=== PATIENT | female | born 1990 | race Caucasian/White ===

== ENCOUNTER 2016-12-11 02:28 | Inpatient (IN) ==
[2016-12-11 03:24] LABS: Amorphous Crystals,Urine Occasional /HPF (Few); Apearance,Urine Slightly Hazy (Clear); Bilirubin,Urine Negative (Negative); Blood, Urine Moderate mg/dL (Negative); Glucose,Urine (UA) Negative (Negative); Ketones,Urine Negative (Negative); Mucus,Urine Occasional /LPF (Occasional); Nitrite,Urine Negative (Negative); Protein,Urine Negative; RBC,Urine 24 /HPF (0-4); Squamous Epithelial Cell,Urine Occasional /HPF (0-10); Urine Color Yellow (Yellow); Urine Specific Gravity 1.011 (1.001-1.035); Urine Urobilinogen < 2.0 EU/DL (0.2-1.0)
[2016-12-11] MEDS ORDERED: FAMOTIDINE 20 MG/2 ML VIAL IV ONE (04:33)
[2016-12-11] MEDS ORDERED: CITRIC ACID/SODIUM CITRATE 30 ML UDCUP PO ONE (04:33)
[2016-12-11 04:55] LABS: Basophils % 0.2 % (0.0-0.8); Eosinophils # 0.2 10*3/uL (0.0-0.87); Eosinophils % 1.3 % (0.00-10.9); Hematocrit 32.6 VOL% (35.7-47.0); Hemoglobin 10.4 GM/DL (12.0-16.0); Immature Granulocytes % 0.6 %; Immature Granulocytes Absolute 0.07 #; Lymphocytes # 2.2 10*3/uL (1.4-4.0); Lymphocytes % 18.1 % (21.3-54.2); Mean Corpuscular HGB Conc 31.9 GM/DL (32-36); Mean Corpuscular Hemoglobin 26 PG (27-34); Mean Corpuscular Volume 82.1 FL (87-102); Mean Platelet Volume 11.9 FL (9.6-12.0); Monocytes # 0.9 10*3/uL (0.11-0.8); Monocytes % 7.1 % (1.7-12.7); Neutrophils # 8.9 10*3/uL (1.4-7.4); Neutrophils % 72.7 % (38.7-73.9); Platelet Count 211 T/CUMM (130-400); Red Blood Count 3.97 MC/CUMM (3.8-5.5); Red Cell Distribution Width 14.4 % (9.3-17.3); White Blood Count 12.3 T/CUMM (4-12)
[2016-12-11] MEDS: LACTATED RINGERS 1,000 ML IV SCH ×3 (05:00→19:27)
[2016-12-11] MEDS ORDERED: BUTORPHANOL 1 MG/ML VIAL IV PRN (05:04)
[2016-12-11] MEDS ORDERED: ONDANSETRON 4 MG/2 ML VIAL IV PRN ×2 (05:05→09:35)
[2016-12-11] MEDS ORDERED: BUTORPHANOL 1 MG/ML VIAL ONE (05:07)
[2016-12-11] MEDS ORDERED: ONDANSETRON 4 MG/2 ML VIAL ONE (05:08)
[2016-12-11] MEDS ORDERED: OXYTOCIN/LR 20 UNIT/1,000 ML BAG IV ONE ×4 (05:33→09:35)
[2016-12-11 05:45] LABS: Alanine Aminotransferase 13 U/L (13-56); Albumin 2.6 G/DL (3.4-5.0); Alkaline Phosphatase 251 U/L (45-117); Aspartate Amino Transferase 6 U/L (0-37); Bilirubin,Total < 0.39 MG/DL (0.2-1.0); Blood Urea Nitrogen 9 MG/DL (7-18); Calcium 9.3 MG/DL (8.5-10.1); Glucose 99 MG/DL (74-106); Osmolality,Calculated 275.5 MOS/KG (273-304); Potassium 4.7 MMOL/L (3.5-5.1); Sodium 139 MMOL/L (136-145); Total Protein 6.2 G/DL (6.4-8.3)
[2016-12-11] MEDS ORDERED: CITRIC ACID/SODIUM CITRATE 30 ML UDCUP ONE (07:49)
[2016-12-11] MEDS ORDERED: SODIUM CHLORIDE 0.9% 100 ML IV ONE (07:50)
[2016-12-11] MEDS ORDERED: PHENYLEPHRINE 1 MG/10 ML SYRINGE IV ONE (07:59)
[2016-12-11] MEDS ORDERED: METHYLERGONOVINE 0.2 MG/1 ML AMP ONE (08:23)
[2016-12-11] MEDS ORDERED: METHYLENE BLUE 10 ML VIAL IV ONE (08:53)
[2016-12-11] MEDS ORDERED: TISSUE ADHESIVE 1 EACH APPLICATOR TOP ONE ×2 (09:22→09:32)
[2016-12-11] MEDS ORDERED: RHO(D) IMMUNE GLOBULIN 300 MCG SYRINGE IM ONE (09:35)
[2016-12-11] MEDS ORDERED: ACETAMINOPHEN 325 MG TABLET PO PRN (09:35)
--- NOTE | 2016-12-11 09:35 | History and Physical Update ---
History and Physical Update - Dictation Physical: refer to scanned H&P - Physical Exam Mental Status: alert and oriented Heart: regular rate and rhythm Lung: clear to auscultation Abdomen: within normal limits Vitals: within normal limits History and Physical Changes: Pt with onset of UCs at about 0130 this morning becoming more painful during the observation period. Pt was 2 cm at time of nurses check. Pt is at 39w5d with EDC of 12/13/16. Prev C/S x 4. Desires sterilization.
[2016-12-11] MEDS ORDERED: fentaNYL 100 MCG/2 ML VIAL ONE (09:46)
[2016-12-11] MEDS ORDERED: MORPHINE 10 MG/10 ML VIAL ONE (09:47)
--- NOTE | 2016-12-11 09:51 | Anesthesia Post-Op ---
Anesthesia Post OP - Post Ansesthetic Evaluation Patient seen in post op: Yes Resp: within normal limits CV: within normal limits Mental: within normal limits Temp: within normal limits [id number]: within normal limits Nausea and Vomiting: within normal limits Pain: within normal limits
[2016-12-11 10:03] LABS: Apearance,Urine CLEAR (Clear); Bilirubin,Urine Negative (Negative); Blood, Urine Small mg/dL (Negative); Glucose,Urine (UA) Negative (Negative); Ketones,Urine Negative (Negative); Mucus,Urine Occasional /LPF (Occasional); Nitrite,Urine Negative (Negative); Protein,Urine Negative; RBC,Urine <1 /HPF (0-4); Squamous Epithelial Cell,Urine Occasional /HPF (0-10); Urine Color Straw (Yellow); Urine Specific Gravity 1.006 (1.001-1.035); Urine Urobilinogen < 2.0 EU/DL (0.2-1.0); WBC,Urine <1 /HPF (0-6)
[2016-12-11 19:40] LABS: Basophils % 0.2 % (0.0-0.8); Eosinophils # 0.1 10*3/uL (0.0-0.87); Eosinophils % 0.6 % (0.00-10.9); Hematocrit 28.6 VOL% (35.7-47.0); Hemoglobin 9.2 GM/DL (12.0-16.0); Immature Granulocytes % 0.6 %; Immature Granulocytes Absolute 0.07 #; Lymphocytes # 1.5 10*3/uL (1.4-4.0); Lymphocytes % 12.7 % (21.3-54.2); Mean Corpuscular HGB Conc 32.2 GM/DL (32-36); Mean Corpuscular Hemoglobin 27 PG (27-34); Mean Corpuscular Volume 82.4 FL (87-102); Mean Platelet Volume 11.5 FL (9.6-12.0); Monocytes # 0.7 10*3/uL (0.11-0.8); Monocytes % 5.8 % (1.7-12.7); Neutrophils # 9.4 10*3/uL (1.4-7.4); Neutrophils % 80.1 % (38.7-73.9); Platelet Count 160 T/CUMM (130-400); Red Blood Count 3.47 MC/CUMM (3.8-5.5); Red Cell Distribution Width 14.4 % (9.3-17.3); White Blood Count 11.8 T/CUMM (4-12)
[2016-12-11] MEDS: DOCUSATE SODIUM 100 MG CAPSULE PO SCH (21:30)
[2016-12-11] MEDS ORDERED: diphenhydrAMINE CAP 25 MG CAPSULE PO PRN (22:45)
[2016-12-12] MEDS: LACTATED RINGERS 1,000 ML IV SCH (02:25)
[2016-12-12] MEDS: IBUPROFEN 800 MG TABLET PO PRN ×2 (03:00→20:50)
[2016-12-12] MEDS: oxyCODONE/ACETAMINOPHEN 5-325 MG TABLET PO PRN ×3 (03:00→20:50)
[2016-12-12 07:01] LABS: Basophils % 0.1 % (0.0-0.8); Eosinophils # 0.1 10*3/uL (0.0-0.87); Eosinophils % 0.9 % (0.00-10.9); Hematocrit 26.2 VOL% (35.7-47.0); Hemoglobin 8.5 GM/DL (12.0-16.0); Immature Granulocytes % 0.7 %; Immature Granulocytes Absolute 0.08 #; Lymphocytes # 1.8 10*3/uL (1.4-4.0); Lymphocytes % 15.2 % (21.3-54.2); Mean Corpuscular HGB Conc 32.4 GM/DL (32-36); Mean Corpuscular Hemoglobin 27 PG (27-34); Mean Corpuscular Volume 82.1 FL (87-102); Mean Platelet Volume 11.9 FL (9.6-12.0); Monocytes # 0.6 10*3/uL (0.11-0.8); Monocytes % 5.1 % (1.7-12.7); Neutrophils # 9.2 10*3/uL (1.4-7.4); Platelet Count 154 T/CUMM (130-400); Red Blood Count 3.19 MC/CUMM (3.8-5.5); Red Cell Distribution Width 14.4 % (9.3-17.3); White Blood Count 11.7 T/CUMM (4-12)
[2016-12-12] MEDS: DOCUSATE SODIUM 100 MG CAPSULE PO SCH ×2 (09:28→20:50)
[2016-12-12] MEDS: MULTIVITAMIN (PRENATAL) TABLET PO SCH (09:28)
[2016-12-12] MEDS: MAGNESIUM HYDROXIDE SUSP 30 ML UDCUP PO PRN ×2 (09:29→20:50)
[2016-12-12] MEDS: SIMETHICONE CHEW 80 MG TABLET PO PRN ×2 (10:25→20:50)
--- NOTE | 2016-12-12 11:37 | OB/GYN Progress Note ---
Assessment and Plan (1) delivery delivered Status: Acute Assessment and plan: Routine care Current Visit: Yes APPRAISER IRRIGATION TAX - PN: Subj Interval history: POD# 1 Doing well. Having expected postop discomfort. Exam APPRAISER IRRIGATION TAX - Constitutional Vitals: Vital Signs Temp Pulse Resp BP Pulse Ox 12/12/16 08:00 97.0 F L 82 20 129/61 98 12/12/16 04:20 98.2 F 91 H 20 146/73 96 12/12/16 01:55 20 12/12/16 00:05 97.2 F L 93 H 20 125/63 96 12/11/16 19:27 97.5 F L 89 20 138/66 99 12/11/16 16:00 97.0 F L 73 19 122/57 12/11/16 12:00 97.2 F L 82 20 111/58 General appearance: no acute distress, morbidly obese - Head Head exam: Present: normal inspection, normocephalic - Eye Eye exam: Present: EOMI - Respiratory Respiratory exam: Present: clear to auscultation bilaterally - Cardiovascular Cardiovascular exam: Present: regular rate and rhythm - GI/Abdominal GI/Abdominal exam: Present: soft (fundus firm, nontender. Incision intact without E/I/D) - Extremities Exam Extremities exam: Present: normal inspection - Neurological Exam Neurological exam: Present: alert, oriented X3 - Psychiatric Psychiatric exam: Present: normal affect, normal mood - Skin Skin exam: Present: normal color, warm Results - Labs CBC & BMP: 12/12/16 06:30 12/11/16 04:47 Lab Results: I have reviewed the past 24 hour labs
[2016-12-12] MEDS ORDERED: BISACODYL 10 MG SUPP RECTAL PRN (23:31)
[2016-12-13] MEDS: oxyCODONE/ACETAMINOPHEN 5-325 MG TABLET PO PRN ×2 (01:08→06:20)
[2016-12-13] MEDS: SIMETHICONE CHEW 80 MG TABLET PO PRN (02:37)
[2016-12-13 03:01] LABS: Basophils % 0.1 % (0.0-0.8); Eosinophils # 0.2 10*3/uL (0.0-0.87); Eosinophils % 1.3 % (0.00-10.9); Hematocrit 27.9 VOL% (35.7-47.0); Immature Granulocytes % 0.8 %; Lymphocytes % 16.5 % (21.3-54.2); Mean Corpuscular HGB Conc 32.3 GM/DL (32-36); Mean Corpuscular Hemoglobin 27 PG (27-34); Mean Corpuscular Volume 83.3 FL (87-102); Mean Platelet Volume 11.3 FL (9.6-12.0); Monocytes # 0.9 10*3/uL (0.11-0.8); Monocytes % 7.7 % (1.7-12.7); Neutrophils % 73.6 % (38.7-73.9); Platelet Count 169 T/CUMM (130-400); Red Blood Count 3.35 MC/CUMM (3.8-5.5); Red Cell Distribution Width 14.5 % (9.3-17.3); White Blood Count 12.2 T/CUMM (4-12)
[2016-12-13] MEDS ORDERED: IBUPROFEN 800 MG TABLET PO PRN (04:34)
--- NOTE | 2016-12-13 07:30 | Discharge Summary ---
Hospital Course - Hospital Course Hospital Course: Pt admitted in active labor. She underwent Repeat LTCS with BTL without complication. Her course has been unremarkable except for significant gas pains now relieved since BM p Fleets enema. Diagnosis - Discharge Diagnosis (1) delivery delivered Status: Acute Discharge Plan - Discharge Data Disposition: Disch To Home/Self Care Condition at Discharge: Stable Discharge Diet: regular diet Activity: other (pelvic rest x 6 wks) Hygiene: may shower Weight Bearing at Discharge: full weight bearing Driving: not until seen by doctor Contact your physician if you experience:: fever over 101, Difficulty voiding, Redness or swelling, Nausea/Vomiting, Shortness of breath, Bleeding, pain uncontrolled by pain medications - Discharge Medications New Acetaminophen Tab [Tylenol Tab] 325 mg PO Q6H PRN tablet PRN Reason: Pain Mild (1-3) And/Or Fever diphenhydrAMINE CAP [Benadryl Cap] 25 mg PO Q6H PRN capsule PRN Reason: Itching Docusate Sodium Cap [Colace Cap] 100 mg PO BID capsule Magnesium Hydroxide Susp [Milk of Magnesia] 30 ml PO BID PRN PRN Reason: Constipation oxyCODONE/ACETAMINOPHEN 5-325 [Percocet 5-325] 2 tablet PO Q4H PRN #30 tablet PRN Reason: Pain Moderate (4-7) Simethicone Chew Tab [Mylicon Chew Tab] 80 mg PO Q6H PRN tablet PRN Reason: Gas Ibuprofen Tab [Motrin Tab] 800 mg PO Q6H PRN #30 tablet PRN Reason: Pain Discontinued Multivitamin () [ Vitamin] 1 tablet PO DAILY - Follow Up or Referral Follow Up: Sandra Prakash DO [Physician] - 1 Week (Tuesday 2pm) - Forms/Instructions Exam - Constitutional Vitals: Period Temp Pulse Resp BP Sys/Menon Pulse Ox Last 24 Hr 97.0 F-98.3 F 82-115 18-20 128-140/61-77 96-100 General appearance: no acute distress, morbidly obese - Head Head exam: Present: normal inspection, normocephalic - Eye Eye exam: Present: EOMI - Respiratory Respiratory exam: Present: clear to auscultation bilaterally - Cardiovascular Cardiovascular exam: Present: regular rate and rhythm - GI/Abdominal GI/Abdominal exam: Present: soft (fundus firm, nontender; Incision intact without E/I/D. Superficial separation of right edge of incision.) - Extremities Exam Extremities exam: Present: normal inspection - Neurological Exam Neurological exam: Present: alert, oriented X3 - Psychiatric Psychiatric exam: Present: normal affect, normal mood - Skin Skin exam: Present: normal color, warm Discharge Results Labs on day of discharge: Labs from last 24 hours 12/13/16 02:55 WBC 12.2 H RBC 3.35 L Hgb 9.0 L Hct 27.9 L MCV 83.3 L MCH 27 MCHC 32.3 RDW 14.5 Plt Count 169 MPV 11.3 Neut % (Auto) 73.6 Lymph % (Auto) 16.5 L Steele % (Auto) 7.7 Eos % (Auto) 1.3 Baso % (Auto) 0.1 Neut # (Auto) 9.0 H Lymph # (Auto) 2.0 Steele # (Auto) 0.9 H Eos # (Auto) 0.2 Baso # (Auto) 0.0 Immature Gran % 0.8 Nucleated RBC % 0.0 Immature Gran # 0.10 Nucleated RBCs # 0.00 DS: Provider Date of admission: 12/11/16 04:33 Primary care physician: . No PCP Attending physician on admission: Sandra Prakash DO Consults: 12/11/16 04:33 Consult to Anesthesiology [CONS] Routine Consulting Provider: Reason for Anesthesiology: Pre-op Clearance 12/11/16 05:21 Consult to Dietitian [CONS] Routine Reason for Dietitian: Dietary Consult 12/11/16 09:35 Consult to [employer] Hanger Attacher [CONS] Routine Consult Clip And Hanger Attacher: Breast Feeding Discharging clinician: Sandra Prakash DO Expected date of discharge: 12/13/16
[2016-12-13 08:24] VITALS: BP 113/52
--- NOTE | 2016-12-13 09:16 | Anesthesia Post-Op ---
Anesthesia Post OP - Post Ansesthetic Evaluation Patient seen in post op: Yes Resp: within normal limits CV: within normal limits Mental: within normal limits Temp: within normal limits [id number]: within normal limits Nausea and Vomiting: within normal limits Pain: within normal limits
[2016-12-13] MEDS: DOCUSATE SODIUM 100 MG CAPSULE PO SCH (09:26)
[2016-12-13] MEDS: MULTIVITAMIN (PRENATAL) TABLET PO SCH (09:27)
--- NOTE | 2016-12-14 13:22 | Pathology Report from [facility] ---
[facility] ACCESSION # : [id number] PATIENT NAME : Isaac Ace ORDERING DR : CLINT KELLER CLINICAL HX: IUP @ 39.5 wks, previous C/S, active labor, requests sterilization POST-OP DX: Same SPECIMEN INFO: Placenta GROSS DESCRIPTION: Received fresh labeled with the patients name ISAAC ACE and consists of a 591 gram placenta which measures 16.5 x 19.0 x 2.8 cm. membranes are translucent with meconium staining noted. The umbilical cord measures 38.0 cm, contains three vessels and is eccentrically inserted. The surface is blue-santana and intact. The maternal surface displays mildly disrupted red-santana cotyledons with calcifications seen. Sectioning reveals no gross abnormalities. Sections submitted: A membranes and cord, B and maternal surfaces. DIAGNOSIS FOR ISAAC ACE: Three vessel umbilical cord.Placental membranes with gross meconium staining.Third trimester chorionic villi with focal placental infarction and dystrophic calcification. COLLECTED DATE: 12/13/2016 [facility] REPORT DATE: 12/14/2016 ELECTRONICALLY SIGNED BY: Dread Schwartz M.D. 12/14/2016 - 9:58:45 [id number]
== END 2016-12-13 12:00 | disposition home or self-care (01) | DRG 540 ==
LOC: N.LDOUT 02:28 → N.LD 02:31 → N.OB 17:15
PROVIDERS: ADMIT Obstetrics & Gynecology; ATTEND Obstetrics & Gynecology